=== PATIENT | female | born 1960 | race Caucasian/White ===

== ENCOUNTER 2019-11-27 10:55 | Emergency (ER) | payer OTHER ==
[~2019-11-27] VITALS: Ht 162.6 cm; Wt 49.9 kg
[~2019-11-27 10:55] MED LIST: ALPR.5 PO; Anastrozole1 GM MC; MECL12.5 PO; OXYC10TA19; TIROSINT100 MCG PO; TIROSINT50 MCG PO; Ultram50 MG PO
[2019-11-27 11:30] LABS: Source, Urine Clean Catch
[2019-11-27 11:41] LABS: BASOPHILS ABSOLUTE AUTO 0.05 K/mm3 (0.00-0.23); BASOPHILS PERCENT AUTO 1 % (0-2); EOSINOPHILS ABSOLUTE AUTO 0.03 K/mm3 (0.00-0.68); EOSINOPHILS PERCENT AUTO 0 % (0-6); Hemoglobin 13.7 g/dL (11.5-16.0); IMMATURE GRAN ABSOLUTE AUTO 0.03 K/mm3 (0.00-0.10); IMMATURE GRAN PERCENT AUTO 0 % (0-1); LYMPHOCYTES ABSOLUTE AUTO 2.11 K/mm3 (0.84-5.20); LYMPHOCYTES PERCENT AUTO 20 % (21-46); MONOCYTES ABSOLUTE AUTO 0.84 K/mm3 (0.16-1.47); MONOCYTES PERCENT AUTO 8 % (4-13); Mean Corpuscular HGB 31.2 pg (26.0-34.0); Mean Corpuscular HGB Conc 33.4 g/dL (31.5-36.5); Mean Corpuscular Volume 93 fL (80-100); Mean Platelet Volume 11.2 fL (9.1-12.4); NEUTROPHILS ABSOLUTE AUTO 7.69 K/mm3 (1.96-9.15); NEUTROPHILS PERCENT AUTO 72 % (41-73); Platelet Count 274 K/mm3 (150-400); RDW Standard Deviation 45.1 fL (35.1-46.3); Red Blood Cell Count 4.39 M/mm3 (3.80-5.20); White Blood Cell Count 10.75 K/mm3 (4.00-11.30)
[2019-11-27 11:42] LABS: Bilirubin, Urine Neg (Neg); Blood, Urine 4+ (Neg); Glucose Qualitative, Urine Neg (Neg); Ketones, Urine Neg (Neg); Leukocyte Esterase, Urine Neg (Neg); Nitrite, Urine Neg (Neg); Protein, Urine Neg (Neg); Specific Gravity, Urine 1.015 (1.003-1.022); Urobilinogen, Urine NORM (Normal)
[2019-11-27 11:52] LABS: Appearance, Urine Clear (Clear); Color, Urine Yellow (P-Yellow); White Blood Cells, Urine 0-2 /hpf (0-5)
[2019-11-27 11:53] LABS: Bacteria Few /hpf; Squamous Epithelial Cells Few /hpf (Few)
[2019-11-27 12:32] LABS: Alanine Aminotransfer (ALT/SGP 21 U/L (12-78); Albumin, Blood 4.2 g/dL (3.4-5.0); Alk Phos 95 U/L (50-136); Anion Gap 10 mmol/L (6-16); Aspartate Aminotrans (AST/SGOT 17 U/L (12-37); Bilirubin, Total 0.3 mg/dL (0.1-1.0); Blood Urea Nitrogen 7 mg/dL (8-24); Bun/Creatinine Ratio 9.6 (12.0-20.0); CO2, Blood 23 mmol/L (21-32); Calcium, Blood 9.3 mg/dL (8.5-10.1); Chloride, Blood 104 mmol/L (98-108); Creatinine, Blood 0.73 mg/dL (0.40-1.00); Glomerular Filtration Rate >60 (60-); Glucose, Blood 109 mg/dL (70-99); Potassium, Blood 3.8 mmol/L (3.5-5.5); Sodium, Blood 137 mmol/L (136-145); Total Protein, Blood 8.2 g/dL (6.4-8.2)
== END 2019-11-27 13:15 | disposition home or self-care (01) ==
LOC: ER 10:55
PROVIDERS: Emergency Medicine
DX: R10.9 Unspecified abdominal pain (principal); R31.9 Hematuria, unspecified; G35 Multiple sclerosis; E03.9 Hypothyroidism, unspecified; Z88.7 Allergy status to serum and vaccine; Z88.8 Allergy status to other drugs, medicaments and biological substances; Z79.899 Other long term (current) drug therapy
CPT/HCPCS: 36415; 74176; 80053; 81001; 85025; 99284-25

== ENCOUNTER 2020-06-19 09:23 | Day surgery (SDC) | payer OTHER ==
[~2020-06-19] VITALS: Ht 160 cm; Wt 56.0 kg
[~2020-06-19 09:23] MED LIST changes: +LEVSOD112 PO; +MECL25 PO; +ONDA4 PO
--- NOTE | 2020-06-19 14:15 | NUR ---
PATIENT ARRIVED VIA BED FROM SIGNAL APPRENTICE, DENIES CHEST PAIN/PRESSURE. ENDORSES SLIGHT SORENESS IN LEFT ARM. PATIENT IS ALERT AND ORIENTED, NO SIGNS OF ACUTE DISTRESS. SURGICAL DRESSING APPLIED TO L. UPPER CHEST, NO DISCHARGE NOTED, WCTM.
[2020-06-19] MEDS ORDERED: MARIJUANA PO (14:32)
--- NOTE | 2020-06-19 15:27 | NUR ---
PATIENT REPORTED ALLERGIES TO EGGS AND MILK, STATED THAT "THEY BOTHER MY NOSE". STATES THAT SHE DOES NOT NEED HER DIET CHANGED TO ACCOMMODATE FOR THESE ALLERGIES. SHE REFUSED HER FLU SHOT D/T HER EGG ALLERGY.
--- NOTE | 2020-06-19 17:54 | NUR ---
NO ACUTE EVENTS THIS HALF OF SHIFT. PATIENT IS ALERT AND ORIENTED, ENDORSES FEELING SORE IN HER LEFT ARM. IS ABLE TO AMBULATE INDEPENDENTLY IN ROOM AFTER SBA SUPERVISION. NO DIZZINESS NOTED. NO DISCHARGE NOTED AT PACEMAKER SITE. VSS, NO SIGNS OF ACUTE DISTRESS. PLAN IS FOR INTERROGATION IN MORNING AND DISCHARGE TOMORROW.
--- NOTE | 2020-06-20 06:16 | NUR ---
SHIFT SUMMARY PT A&O X4. INDPENDENT IN RM. VSS. SPO2 > 92% ON RA. MONITOR SHOWS NSR, HR 70's-80's. LCW PACER INSERTION SITE SLIGHTLY SWOLLEN, OTHERWISE WNL. DRESSING IN TACT. L ARM IN SLING. PT REPORTING INITIAL 8/10 L CHEST/SHOULDER/ARM PAIN, MANAGING SUCCESSFULLY W/ PRN NORCO PER EMAR X3 THIS SHIFT W/ PT REPORT OF PAIN REDUCTION TO 4/10 THIS AM. PT ANTICIPATING DC HOME TODAY AFTER X-RAY & PACER INTERROGATION.
[2020-06-20] MEDS ORDERED: Norco 5-325 Ta1 EACH PO (09:47)
--- NOTE | 2020-06-20 12:50 | NUR ---
PATIENT PROVIDED DISCHARGE INFO REGARDING FOLLOW UP PLANS, NEW PACEMAKER SITE CARE, MOVEMENT RESTRICTIONS AND REASONS TO RETURN TO THE HOSPITAL. PATIENT VERBALIZED UNDERSTANDING, NO SIGNS OF ACUTE DISTRESS, NO NEW DISCHARGE NOTED AT PACEMAKER SITE.
== END 2020-06-20 13:00 | disposition home or self-care (01) ==
LOC: MHTC 09:23 → PCU 13:52 → ENPENDDIS 06-20 08:59 → MHTC 06-20 13:00
PROC: 02H63JZ Insertion of Pacemaker Lead into Right Atrium, Percutaneous Approach (ICD-10-PCS; principal; 2020-06-19)
PROC: 0JH606Z Insertion of Pacemaker, Dual Chamber into Chest Subcutaneous Tissue and Fascia, Open Approach (ICD-10-PCS; principal; 2020-06-19)
PROC: 02HK3JZ Insertion of Pacemaker Lead into Right Ventricle, Percutaneous Approach (ICD-10-PCS; principal; 2020-06-19)
DX: I44.1 Atrioventricular block, second degree (principal); I44.7 Left bundle-branch block, unspecified; I10 Essential (primary) hypertension; E78.5 Hyperlipidemia, unspecified; E03.9 Hypothyroidism, unspecified; G35 Multiple sclerosis; G43.909 Migraine, unspecified, not intractable, without status migrainosus; J45.909 Unspecified asthma, uncomplicated; K21.9 Gastro-esophageal reflux disease without esophagitis; H54.40 Blindness, one eye, unspecified eye; Z88.8 Allergy status to other drugs, medicaments and biological substances; Z88.7 Allergy status to serum and vaccine; Z91.011 Allergy to milk products; Z91.012 Allergy to eggs; Z79.899 Other long term (current) drug therapy; Z23 Encounter for immunization
CPT/HCPCS: 33208; 71045; 71046; 76937; 99152; 99153; A9270; A9270-GY; C1785; C1894; C1898; J0690; J1644; J2250; J2405; J3010; J7030; J7040; J7050

== ENCOUNTER → 2024-01-22 | Outpatient (CLI) | payer OTHER ==
[~2024-01-22] MED LIST changes: +MARIJUANA PO; +Norco 5-325 Ta1 EACH PO
[2024-01-22 14:21] LABS: Bun/Creatinine Ratio 16.3 (12.0-20.0); Calcium, Blood 8.5 mg/dL (8.5-10.1); Creatinine, Blood 0.92 mg/dL (0.40-1.00); Free Thyroxine 1.2 ng/dL (0.70-1.60); Potassium, Blood 4.5 mmol/L (3.5-5.5); Thyroid Stimulating Hormone 3.26 uIU/mL (0.360-4.800)
== END | disposition home or self-care (01) ==
LOC: LAB 09:47 → LAB SHORT 09:47
PROVIDERS: Physician Assistant
DX: E03.9 Hypothyroidism, unspecified (principal); E87.6 Hypokalemia
CPT/HCPCS: 80048; 84439; 84443

== ENCOUNTER → 2024-02-02 | Outpatient (CLI) | payer OTHER ==
[2024-02-02 15:10] LABS: Bun/Creatinine Ratio 14.3 (12.0-20.0); Calcium, Blood 8.6 mg/dL (8.5-10.1); Creatinine, Blood 0.91 mg/dL (0.40-1.00); Potassium, Blood 4.2 mmol/L (3.5-5.5)
== END ==
LOC: LAB 12:18 → LAB SHORT 12:18
PROVIDERS: Physician Assistant
DX: E87.6 Hypokalemia (principal)
CPT/HCPCS: 80048

== ENCOUNTER → 2024-03-14 | Outpatient (CLI) | payer OTHER ==
[2024-03-14 16:33] LABS: Bun/Creatinine Ratio 13.7 (12.0-20.0); Calcium, Blood 8.7 mg/dL (8.5-10.1); Creatinine, Blood 0.88 mg/dL (0.40-1.00); Potassium, Blood 4.4 mmol/L (3.5-5.5)
== END ==
LOC: LAB SHORT 15:12 → LAB 15:12
PROVIDERS: Physician Assistant
DX: E87.6 Hypokalemia (principal)
CPT/HCPCS: 80048

== ENCOUNTER → 2024-05-15 | Outpatient (CLI) | payer OTHER ==
[2024-05-15 16:41] LABS: Alanine Aminotransfer (ALT/SGP 23 U/L (12-78); Albumin, Blood 4.1 g/dL (3.4-5.0); Albumin/Globulin Ratio 1.2 (0.8-1.8); Alk Phos 58 U/L (50-136); Anion Gap 8 mmol/L (3-11); Aspartate Aminotrans (AST/SGOT 15 U/L (12-37); Bilirubin, Total 0.5 mg/dL (0.1-1.0); Blood Urea Nitrogen 15 mg/dL (8-24); Bun/Creatinine Ratio 15.9 (12.0-20.0); CHOL/HDL RATIO 3.8; CO2, Blood 27 mmol/L (21-32); Chloride, Blood 103 mmol/L (98-108); Cholesterol 169 mg/dL (50-200); Creatinine, Blood 0.94 mg/dL (0.40-1.00); Globulin, Blood 3.3 g/dL (2.2-4.0); Glomerular Filtration Rate 68 (60-); Glucose, Blood 113 mg/dL (70-99); HDL Cholesterol 44 mg/dL (>39); LDL/HDL RATIO 2.3; Low Density Lipoprotein Chol 103 mg/dL (0-110); Potassium, Blood 4.1 mmol/L (3.5-5.5); Sodium, Blood 134 mmol/L (136-145); Total Protein, Blood 7.4 g/dL (6.4-8.2); Triglycerides 110 mg/dL (30-160); Very Low Density Lipoprot Chol 22 mg/dL (6-32)
== END | disposition home or self-care (01) ==
LOC: LAB SHORT 15:22 → LAB 15:22
PROVIDERS: Physician Assistant
DX: Z51.81 Encounter for therapeutic drug level monitoring (principal); Z79.899 Other long term (current) drug therapy
CPT/HCPCS: 80053; 80061

== ENCOUNTER → 2024-09-12 | Outpatient (CLI) | payer OTHER ==
[2024-09-12 16:13] LABS: BASOPHILS ABSOLUTE AUTO 0.05 K/mm3 (0.00-0.23); BASOPHILS PERCENT AUTO 1 % (0-2); EOSINOPHILS ABSOLUTE AUTO 0.04 K/mm3 (0.00-0.68); EOSINOPHILS PERCENT AUTO 1 % (0-6); Hemoglobin 11.5 g/dL (11.5-16.0); IMMATURE GRAN ABSOLUTE AUTO 0.01 K/mm3 (0.00-0.10); IMMATURE GRAN PERCENT AUTO 0 % (0-1); LYMPHOCYTES ABSOLUTE AUTO 1.82 K/mm3 (0.84-5.20); LYMPHOCYTES PERCENT AUTO 36 % (21-46); MONOCYTES ABSOLUTE AUTO 0.54 K/mm3 (0.16-1.47); MONOCYTES PERCENT AUTO 11 % (4-13); Mean Corpuscular HGB 29.7 pg (26.0-34.0); Mean Corpuscular HGB Conc 32.9 g/dL (31.5-36.5); Mean Corpuscular Volume 90 fL (80-100); Mean Platelet Volume 11.1 fL (9.1-12.4); NEUTROPHILS ABSOLUTE AUTO 2.66 K/mm3 (1.96-9.15); NEUTROPHILS PERCENT AUTO 52 % (41-73); Platelet Count 265 K/mm3 (150-400); RDW Coefficient Variation 13.8 % (11.7-14.2); RDW Standard Deviation 45.9 fL (35.1-46.3); Red Blood Cell Count 3.87 M/mm3 (3.80-5.20); White Blood Cell Count 5.12 K/mm3 (4.00-11.30)
[2024-09-12 19:58] LABS: Very Low Density Lipoprot Chol 23 mg/dL (6-32)
[2024-09-12 20:13] LABS: LDL/HDL RATIO 2.4
[2024-09-12 20:14] LABS: Alanine Aminotransfer (ALT/SGP 23 U/L (12-78); Albumin, Blood 4.2 g/dL (3.4-5.0); Albumin/Globulin Ratio 1.4 (0.8-1.8); Alk Phos 56 U/L (50-136); Anion Gap 14 mmol/L (3-11); Aspartate Aminotrans (AST/SGOT 16 U/L (12-37); Bilirubin, Total 0.4 mg/dL (0.1-1.0); Blood Urea Nitrogen 20 mg/dL (8-24); CO2, Blood 26 mmol/L (21-32); Calcium, Blood 9.4 mg/dL (8.5-10.1); Chloride, Blood 102 mmol/L (98-108); Cholesterol 182 mg/dL (50-200); Creatinine, Blood 0.83 mg/dL (0.40-1.00); Globulin, Blood 3.1 g/dL (2.2-4.0); Glomerular Filtration Rate 78 (60-); Glucose, Blood 90 mg/dL (70-99); HDL Cholesterol 46 mg/dL (>39); Low Density Lipoprotein Chol 113 mg/dL (0-110); Potassium, Blood 4.3 mmol/L (3.5-5.5); Sodium, Blood 138 mmol/L (136-145); Total Protein, Blood 7.3 g/dL (6.4-8.2); Triglycerides 117 mg/dL (30-160)
== END ==
LOC: LAB 15:00 → LAB SHORT 15:00
PROVIDERS: Physician Assistant
DX: Z79.899 Other long term (current) drug therapy (principal)
CPT/HCPCS: 80053; 80061; 82306; 83036; 84443; 85025

== ENCOUNTER 2024-12-17 07:04 | Inpatient (IN) | payer OTHER ==
[~2024-12-17] VITALS: Ht 160 cm; Wt 50.2 kg
[2024-12-17] MEDS ORDERED: NS 1,000 ML IV SCH (07:25)
[2024-12-17] MEDS ORDERED: Morphine Sulfate 4 MG/1 ML Injection IV ONE (07:25)
[2024-12-17] MEDS ORDERED: Ondansetron HCl 2 MG / ML 2ML Vial IV ONE (07:25)
[2024-12-17 08:11] LABS: BASOPHILS ABSOLUTE AUTO 0.01 K/mm3 (0.00-0.23); BASOPHILS PERCENT AUTO 0 % (0-2); EOSINOPHILS PERCENT AUTO 0 % (0-6); Hematocrit 38.6 % (33.0-51.0); Hemoglobin 12.7 g/dL (11.5-16.0); IMMATURE GRAN ABSOLUTE AUTO 0.02 K/mm3 (0.00-0.10); IMMATURE GRAN PERCENT AUTO 0 % (0-1); LYMPHOCYTES ABSOLUTE AUTO 0.25 K/mm3 (0.84-5.20); LYMPHOCYTES PERCENT AUTO 3 % (21-46); MONOCYTES PERCENT AUTO 5 % (4-13); Mean Corpuscular HGB 29.9 pg (26.0-34.0); Mean Corpuscular HGB Conc 32.9 g/dL (31.5-36.5); Mean Corpuscular Volume 91 fL (80-100); Mean Platelet Volume 10.7 fL (9.1-12.4); NEUTROPHILS ABSOLUTE AUTO 7.05 K/mm3 (1.96-9.15); NEUTROPHILS PERCENT AUTO 91 % (41-73); Platelet Count 231 K/mm3 (150-400); RDW Coefficient Variation 13.8 % (11.7-14.2); RDW Standard Deviation 46.4 fL (35.1-46.3); Red Blood Cell Count 4.25 M/mm3 (3.80-5.20); White Blood Cell Count 7.73 K/mm3 (4.00-11.30)
[2024-12-17 08:40] LABS: Albumin, Blood 3.6 g/dL (3.4-5.0); Albumin/Globulin Ratio 1.2 (0.8-1.8); Bilirubin, Total 0.4 mg/dL (0.1-1.0); Calcium, Blood 8.1 mg/dL (8.5-10.1); Creatinine, Blood 0.93 mg/dL (0.40-1.00); Globulin, Blood 3.1 g/dL (2.2-4.0); Magnesium, Blood 1.9 mg/dL (1.6-2.4); Potassium, Blood 3.2 mmol/L (3.5-5.5); Total Protein, Blood 6.7 g/dL (6.4-8.2)
[2024-12-17] MEDS ORDERED: Lactated Ringer's 1,000 ML IV ONE (09:45)
[2024-12-17] MEDS ORDERED: Prochlorperazine Edisylate 10 mg Vial IV ONE (10:15)
[2024-12-17] MEDS ORDERED: Lactated Ringer's 1,000 ML IV SCH (13:35)
[2024-12-17] MEDS ORDERED: Potassium Chloride 40 MEQ in NS 250 ML IV STA (13:38)
[2024-12-17] MEDS ORDERED: Ondansetron HCl 2 MG / ML 2ML Vial IV PRN (13:40)
[2024-12-17] MEDS ORDERED: D5W-LR 1,000 ML IV SCH (13:50)
[2024-12-17] MEDS ORDERED: Diazepam 5 MG / ML 2ML SYR IV PRN (13:55)
[2024-12-17] MEDS ORDERED: Metoclopramide HCl 5MG / ML 2ML Vial IV PRN (13:55)
[2024-12-17] MEDS ORDERED: Scopolamine Hydrobromide Patch TOP SCH (14:00)
[2024-12-17 16:35] VITALS: BP 115/77
--- NOTE | 2024-12-17 18:20 | NUR ---
PT ADMITTED TO ROOM 303 FROM ED, AMBULATED SBA FROM GOURNEY TO BED SBA, STEADY ON FEET BUT FEELING A LITTLE WEAK. HAS IV KCL INFUSING TO LAC, CALLED PHARMACY TO SEND D5LR TO START AT 150ML/HR X3L. PT STATES NAUSEA CONTROLLED CURRENTLY. ORIENTED TO ROOM AND CALL LIGHT. ENFORSED PT CALL STAFF FOR ACTIVITY FOR NOW SINCE SHE IS WEAK. PT KNOWS PHYSICAL LIMITS.
--- NOTE | 2024-12-17 18:50 | NUR ---
SUMMARY- PT A/O X3, WITHDRAWN AND IRRITABLE. IMPULSIVE AND GETS UP WITH ASSIST USE THE URINAL, PT HAS ADQ STRENGTH, SET OFF BED ALARM FREQ. PT VOIDS SMALL FREQ AMOUNT, STARTED ON FLOMAX TODAY. THIS RN DID NOT NOTICE ANY DIFFERENCE IN URINATION AFTER THIS DOSE. PT DECLILNED PLEURX PLACEMENT WITH DR ALMAARZ EARLIER TODAY, BUT STATES HE HAS DECIDED HE WOULD LIKE TO HAVE THE PLEURX DRAIN PLACED TOMORROW IF POSSIBEL. PT DID AGREE FOR THORA TODAY AND 2L REMOVED. PT STATES HE FEELS HE IS BREATHING BETTER, APPEARS BRIGHTER AND MORE INTERACTIVE. IN TO VISIT FOR A FEW HOURS TODAY. PLAN LIKELY FOR SNF PT'S NEEDS TOO GREAT FOR TO CARE FOR AT HOME. REPORTED OFF TO NOC KOKO ZIMMERMAN
[2024-12-17 19:16] VITALS: BP 121/87
[2024-12-17] MEDS ORDERED: Famotidine 20 MG Tab PO SCH (21:00)
[2024-12-18] VITALS (8 sets, daily range): BP systolic 98–131; BP diastolic 71–98
--- NOTE | 2024-12-18 04:23 | NUR ---
SHIFT SUMMARY 64 YR F ADMITTED ON 12/17/24. FULL CODE. PT WAS HAVING N/V AFTER BEING GIVEN ANTIEMETIC. SHE STATED THE VOMITING WAS CAUSING BACK PAIN. MEDICATED W/ VALIUM PER EMAR AND PT STOPPED N/V AND WAS ABLE TO SLEEP FOR A FEW HOURS W/O INTERUPTION. SHE IS INDEPENDANT IN THE ROOM AND PLEASANT AND COOPERATIVE WITH CARE. CURRENTLY ON SECOND OF THREE BAGS OF D5LR. STOOL SAMPLE NEEDS TO BE COLLECTED BUT NO BM THIS SHIFT.
[2024-12-18 05:30] LABS: BASOPHILS ABSOLUTE AUTO 0.01 K/mm3 (0.00-0.23); BASOPHILS PERCENT AUTO 0 % (0-2); EOSINOPHILS PERCENT AUTO 0 % (0-6); Hemoglobin 11.1 g/dL (11.5-16.0); IMMATURE GRAN ABSOLUTE AUTO 0.02 K/mm3 (0.00-0.10); IMMATURE GRAN PERCENT AUTO 0 % (0-1); LYMPHOCYTES ABSOLUTE AUTO 0.69 K/mm3 (0.84-5.20); LYMPHOCYTES PERCENT AUTO 9 % (21-46); MONOCYTES ABSOLUTE AUTO 0.68 K/mm3 (0.16-1.47); MONOCYTES PERCENT AUTO 9 % (4-13); Mean Corpuscular HGB 30.4 pg (26.0-34.0); Mean Corpuscular HGB Conc 34.7 g/dL (31.5-36.5); Mean Corpuscular Volume 88 fL (80-100); Mean Platelet Volume 11.7 fL (9.1-12.4); NEUTROPHILS PERCENT AUTO 82 % (41-73); Platelet Count 149 K/mm3 (150-400); RDW Standard Deviation 44.8 fL (35.1-46.3); Red Blood Cell Count 3.65 M/mm3 (3.80-5.20)
[2024-12-18] MEDS ORDERED: Levothyroxine Sodium 0.112 MG Tab PO SCH (06:00)
[2024-12-18 06:26] LABS: Albumin, Blood 2.8 g/dL (3.4-5.0); Albumin/Globulin Ratio 1.1 (0.8-1.8); Bilirubin, Total 0.2 mg/dL (0.1-1.0); Calcium, Blood 7.7 mg/dL (8.5-10.1); Creatinine, Blood 0.75 mg/dL (0.40-1.00); Globulin, Blood 2.6 g/dL (2.2-4.0); Potassium, Blood 3.4 mmol/L (3.5-5.5); Total Protein, Blood 5.4 g/dL (6.4-8.2)
[2024-12-18] MEDS ORDERED: Potassium Chloride 40 MEQ in NS 250 ML IV STA (08:06)
[2024-12-18] MEDS ORDERED: Enoxaparin 40 MG/0.4 ML SYR SC SCH (09:00)
[2024-12-18] MEDS ORDERED: Hydrocortisone Sod Succinate 100 MG Vial IV SCH (09:00)
[2024-12-18] MEDS ORDERED: Furosemide 10 MG/ML 4ML Vial IV SCH (14:00)
[2024-12-18] MEDS ORDERED: Diltiazem HCl 5 MG / ML 5ML Vial IV ONE (14:00)
--- NOTE | 2024-12-18 14:48 | NUR ---
Shift summary/transfer Patient during am had complaints of shortness of breath, elevated HR noted during morning vitals. Patient continues to be on Telemetry. MD notified during morning hours about increased shortness of breath. Orders obtained, CT scan done and patient tolerated well, shortly after returning to room patient stated shortness of breath was worse. IV stopped and MD notified. Medications administered per new orders and patient transferred to PCU for further care.
[2024-12-18 14:52] LABS: Source, Urine Clean Catch
[2024-12-18] MEDS ORDERED: dilTIAZem HCL 125 MG in Dextrose 5% 100 ML IV SCH (15:00)
[2024-12-18] MEDS ORDERED: CefTRIAXone Sodium 1,000 MG in NS 100 ML IV SCH (15:00)
[2024-12-18 15:26] LABS: Appearance, Urine Clear (Clear); Bilirubin, Urine Neg (Neg); Blood, Urine 1+ (Neg); Color, Urine Yellow (P-Yellow); Glucose Qualitative, Urine 1+ (Neg); Ketones, Urine Neg (Neg); Leukocyte Esterase, Urine 1+ (Neg); Nitrite, Urine Neg (Neg); Protein, Urine 2+ (Neg); Specific Gravity, Urine 1.015 (1.003-1.022); Urobilinogen, Urine NORM (Normal)
[2024-12-18 15:35] LABS: Bacteria Few /hpf; Squamous Epithelial Cells Rare /hpf (Few); White Blood Cells, Urine 25-50 /hpf (0-5)
[2024-12-18 16:55] LABS: Adenovirus Not Detected (NOT DETECT); Bordetella pertussis Not Detected (NOT DETECT); Chlamydophila pneumoniae Not Detected (NOT DETECT); Coronavirus 229E Not Detected (NOT DETECT); Coronavirus HKU1 Not Detected (NOT DETECT); Coronavirus NL63 Not Detected (NOT DETECT); Coronavirus OC43 Not Detected (NOT DETECT); Human Metapneumovirus Not Detected (NOT DETECT); Human Rhinovirus/Enterovirus Not Detected (NOT DETECT); Influenza A/2009-H1 Not Detected (NOT DETECT); Influenza A/H1 Not Detected (NOT DETECT); Influenza A/H3 Not Detected (NOT DETECT); Influenza B Not Detected (NOT DETECT); Mycoplasma pneumoniae Not Detected (NOT DETECT); Parainfluenza Virus 1 Not Detected (NOT DETECT); Parainfluenza Virus 2 Not Detected (NOT DETECT); Parainfluenza Virus 3 Not Detected (NOT DETECT); Parainfluenza Virus 4 Not Detected (NOT DETECT); Respiratory Syncytial Virus Not Detected (NOT DETECT); SARS-Cov-2 (COVID-19), BioFire Not Detected (NOT DETECT)
--- NOTE | 2024-12-18 18:38 | NUR ---
PT ARRIVED TO UNIT @ 1436 FROM RM 303. SHE IS A&Ox4 AND ABLE TO MAKE NEEDS KNOWN. SHE IS ON OXY MASK @13L AND HER O2 SATS ARE IN THE 90'S. SHE IS INDEPENDENT TO AND FROM THE BSC. SHE IS ON A DILTIAZEM GTT PER EMAR. NO NEEDS OR CONCERNS NOTED @ THIS TIME. BED IN LOW POSITION, CALL LIGHT AND PERSONAL BELONGINGS IN REACH.
[2024-12-19 03:59] VITALS: BP 99/72
[2024-12-19 04:45] LABS: BASOPHILS ABSOLUTE AUTO 0.02 K/mm3 (0.00-0.23); BASOPHILS PERCENT AUTO 0 % (0-2); EOSINOPHILS PERCENT AUTO 0 % (0-6); Hematocrit 32.8 % (33.0-51.0); IMMATURE GRAN ABSOLUTE AUTO 0.03 K/mm3 (0.00-0.10); IMMATURE GRAN PERCENT AUTO 0 % (0-1); LYMPHOCYTES ABSOLUTE AUTO 1.13 K/mm3 (0.84-5.20); LYMPHOCYTES PERCENT AUTO 11 % (21-46); MONOCYTES ABSOLUTE AUTO 0.88 K/mm3 (0.16-1.47); MONOCYTES PERCENT AUTO 9 % (4-13); Mean Corpuscular HGB 29.6 pg (26.0-34.0); Mean Corpuscular HGB Conc 33.5 g/dL (31.5-36.5); Mean Corpuscular Volume 88 fL (80-100); NEUTROPHILS ABSOLUTE AUTO 8.31 K/mm3 (1.96-9.15); NEUTROPHILS PERCENT AUTO 80 % (41-73); Platelet Count 139 K/mm3 (150-400); RDW Coefficient Variation 13.8 % (11.7-14.2); RDW Standard Deviation 44.6 fL (35.1-46.3); Red Blood Cell Count 3.72 M/mm3 (3.80-5.20); White Blood Cell Count 10.37 K/mm3 (4.00-11.30)
--- NOTE | 2024-12-19 05:19 | NUR ---
SHIFT SUMMARY PT A&O X4, ABLE TO MAKE NEEDS KNOWN. VSS, AFEBRILE, SPO2 >90% ON 13-15L OXIMASK. PT REPORTS STARTING TO FEEL BETTER AND STATES THAT IT "FEELS EASIER TO TAKE A BREATH". SHE HAS A COUGH, SPUTUM CULTURE PENDING SAMPLE COLLECTION. CARDIZEM GTT INFUSING PER EMAR, HR STABLE WITH RATE OF 90S-110S. PT DENIES CP OR PRESSURE. NAUSEA MEDICATED PER EMAR. PT IS SBA TO THE RESTROOM FOR LINE MANAGEMENT. BED IS IN LOWEST POSITION, CALL LIGHT IN REACH, BREATHING IS EVEN AND UNLABORED.
[2024-12-19 06:02] LABS: Albumin, Blood 2.8 g/dL (3.4-5.0); Bilirubin, Total 0.4 mg/dL (0.1-1.0); Bun/Creatinine Ratio 21.9 (12.0-20.0); Calcium, Blood 7.8 mg/dL (8.5-10.1); Creatinine, Blood 0.73 mg/dL (0.40-1.00); Globulin, Blood 2.7 g/dL (2.2-4.0); Potassium, Blood 3.1 mmol/L (3.5-5.5); Total Protein, Blood 5.5 g/dL (6.4-8.2)
[2024-12-19] MEDS ORDERED: Potassium Chloride 20 MEQ TabCR PO SCH (06:15)
[2024-12-19 07:27] VITALS: BP 103/68
[2024-12-19] MEDS ORDERED: Midodrine 5 MG Tab PO PRN (07:40)
[2024-12-19] MEDS ORDERED: Metoprolol Tartrate 25 MG Tab PO SCH (08:00)
[2024-12-19] MEDS ORDERED: Azithromycin 250 MG in NS 250 ML IV SCH (09:00)
[2024-12-19] MEDS ORDERED: Furosemide 10 MG / ML 2ML Vial IV SCH (09:00)
[2024-12-19 11:09] VITALS: BP 116/78
--- NOTE | 2024-12-19 14:59 | NUR ---
PT CALLED TO SAY THAT SHE WAS HAVING 8/10 PAIN TO LUQ THAT RADIATED AROUND TO THE BACK THAT WAS SHARP AND CONSTANT. CALLED DR. ORLANDO TO NOTIFY AND SHE WILL PUT ORDERS IN.
[2024-12-19] MEDS ORDERED: TraMADol HCl 50 MG Tab PO PRN (15:05)
[2024-12-19 15:16] VITALS: BP 92/80
[2024-12-19] MEDS ORDERED: Lidocaine 4% 1 Patch TOP SCH (18:15)
--- NOTE | 2024-12-19 18:39 | NUR ---
PT IS A&Ox4 AND ABLE TO MAKE NEEDS KNOWN. SHE IS ON 5LNC W/O2 SATS ABOVE 90%. SHE IS A SBA TO AND FROM THE RESTROOM. SHE IS STILL HAVING NAUSEA THROUGHOUT THE DAY, BUT SHE IS TRYING TO EAT SMALL AMOUNTS OF LIQUID. NO NEEDS OR CONCERNS NOTED @ THIS TIME. BED IN LOW POSITION, CALL LIGHT AND PERSONAL BELONGINGS IN REACH.
[2024-12-19 18:41] VITALS: BP 147/92
[2024-12-19 21:32] VITALS: BP 118/64
[2024-12-20] VITALS: BP 98/69
[2024-12-20 04:11] LABS: BASOPHILS ABSOLUTE AUTO 0.02 K/mm3 (0.00-0.23); BASOPHILS PERCENT AUTO 0 % (0-2); EOSINOPHILS PERCENT AUTO 0 % (0-6); Hematocrit 36.3 % (33.0-51.0); Hemoglobin 12.3 g/dL (11.5-16.0); IMMATURE GRAN ABSOLUTE AUTO 0.04 K/mm3 (0.00-0.10); IMMATURE GRAN PERCENT AUTO 0 % (0-1); LYMPHOCYTES ABSOLUTE AUTO 1.52 K/mm3 (0.84-5.20); LYMPHOCYTES PERCENT AUTO 12 % (21-46); MONOCYTES PERCENT AUTO 5 % (4-13); Mean Corpuscular HGB 30.4 pg (26.0-34.0); Mean Corpuscular HGB Conc 33.9 g/dL (31.5-36.5); Mean Corpuscular Volume 90 fL (80-100); NEUTROPHILS ABSOLUTE AUTO 10.69 K/mm3 (1.96-9.15); NEUTROPHILS PERCENT AUTO 82 % (41-73); NRBC ABSOLUTE 0.02 K/mm3 (0.00-0.02); NRBC Auto 0.2 /100 WBC (0.0-0.2); Platelet Count 198 K/mm3 (150-400); RDW Coefficient Variation 13.7 % (11.7-14.2); RDW Standard Deviation 45.1 fL (35.1-46.3); Red Blood Cell Count 4.05 M/mm3 (3.80-5.20); White Blood Cell Count 12.97 K/mm3 (4.00-11.30)
[2024-12-20 04:42] LABS: Bun/Creatinine Ratio 26.4 (12.0-20.0); Calcium, Blood 7.6 mg/dL (8.5-10.1); Creatinine, Blood 0.76 mg/dL (0.40-1.00); Magnesium, Blood 2.4 mg/dL (1.6-2.4); Potassium, Blood 4.3 mmol/L (3.5-5.5)
--- NOTE | 2024-12-20 06:18 | NUR ---
PT HAD AN UNEVENTFUL NIGHT, ABLE TO MAKE HER NEEDS KNOWN, PT IS ALERT, SR-ST, 2L NC, LUNGS DIM BUT CLEAR, PT C/O PAIN TO RIGH [place]ANK RIB AREA, PRN GIVEN, PT CO NAUSEA, PRN GIVEN EFFECTIVE, CALL LIGHT WITHIN REACH PERSONAL ITEMS AT BEDSIDE.
[2024-12-20] MEDS ORDERED: CALCIUM GLUC IN NACL, ISO-OSM 50 ML IV ONE (07:50)
[2024-12-20 08:26] VITALS: BP 117/84
[2024-12-20] MEDS ORDERED: Lidocaine 4% 1 Patch TOP SCH (09:00)
[2024-12-20] MEDS ORDERED: Metoprolol Tartrate 25 MG Tab PO SCH ×3 (09:00→21:00)
[2024-12-20] MEDS ORDERED: Hydrocortisone Sod Succinate 100 MG Vial IV SCH ×2 (09:00)
[2024-12-20] MEDS ORDERED: Doxycycline Hyclate 100 MG TAB PO SCH (09:00)
[2024-12-20] MEDS ORDERED: Metoprolol Tartrate 25 MG Tab PO ONE (09:55)
[2024-12-20 12:08] VITALS: BP 124/81
[2024-12-20 15:51] VITALS: BP 135/93
[2024-12-20 17:54] VITALS: BP 140/105
--- NOTE | 2024-12-20 18:00 | NUR ---
SHIFT SUMMARY PATIENT AOX4 ABLE TO MAKE NEEDS KNOWN. SHE DENIES CHEST PAIN OR SOB. SHE IS TOLERATING HER FULL LIQUIDS AND IS UP VOIDING IN THE RESTROOM. SHE IS ON 1.5L OF O2 SATTING GREATER THAN 92% AND HER HEART RATE IS TACHY IN THE 1OO-110s.
[2024-12-20] MEDS ORDERED: Lidocaine 4% 1 Patch TOP ONE (18:10)
[2024-12-20 21:01] VITALS: BP 119/80
--- NOTE | 2024-12-21 00:49 | NUR ---
SHIFT SUMMARY- NO ACUTE CHANGES. PT RECIEVED MEDSURG TX ORDERS
[2024-12-21 04:17] VITALS: BP 130/86
[2024-12-21 04:17] LABS: BASOPHILS ABSOLUTE AUTO 0.02 K/mm3 (0.00-0.23); BASOPHILS PERCENT AUTO 0 % (0-2); EOSINOPHILS PERCENT AUTO 0 % (0-6); Hematocrit 34.5 % (33.0-51.0); Hemoglobin 11.7 g/dL (11.5-16.0); IMMATURE GRAN ABSOLUTE AUTO 0.05 K/mm3 (0.00-0.10); IMMATURE GRAN PERCENT AUTO 1 % (0-1); LYMPHOCYTES ABSOLUTE AUTO 1.84 K/mm3 (0.84-5.20); LYMPHOCYTES PERCENT AUTO 19 % (21-46); MONOCYTES ABSOLUTE AUTO 0.71 K/mm3 (0.16-1.47); MONOCYTES PERCENT AUTO 7 % (4-13); Mean Corpuscular HGB 29.7 pg (26.0-34.0); Mean Corpuscular HGB Conc 33.9 g/dL (31.5-36.5); Mean Corpuscular Volume 88 fL (80-100); Mean Platelet Volume 11.6 fL (9.1-12.4); NEUTROPHILS ABSOLUTE AUTO 6.96 K/mm3 (1.96-9.15); NEUTROPHILS PERCENT AUTO 73 % (41-73); NRBC ABSOLUTE 0.05 K/mm3 (0.00-0.02); NRBC Auto 0.5 /100 WBC (0.0-0.2); Platelet Count 223 K/mm3 (150-400); RDW Coefficient Variation 13.7 % (11.7-14.2); RDW Standard Deviation 43.9 fL (35.1-46.3); Red Blood Cell Count 3.94 M/mm3 (3.80-5.20); White Blood Cell Count 9.58 K/mm3 (4.00-11.30)
[2024-12-21 04:36] LABS: Bun/Creatinine Ratio 21.9 (12.0-20.0); Calcium, Blood 8.1 mg/dL (8.5-10.1); Creatinine, Blood 0.73 mg/dL (0.40-1.00); Potassium, Blood 3.5 mmol/L (3.5-5.5)
[2024-12-21 08:34] VITALS: BP 129/101
[2024-12-21 12:25] VITALS: BP 95/56
[2024-12-21] MEDS ORDERED: DOXY100 PO (12:35)
[2024-12-21] MEDS ORDERED: METO25ER PO (12:36)
--- NOTE | 2024-12-21 12:51 | NUR ---
DISCHARGE PT PROVIDED DISCHARGE INSTRUCTIONS AND EDUCATED ON NEW MEDICATIONS. ALL QUESTIONS ANSWERED. PT TAKEN OUT VIA WC.
--- NOTE | 2024-12-21 13:02 | NUR ---
SHIFT SUMMARY PATIENT AOX4 ABLE TO MAKE NEEDS KNOWN. SHE DENIES CHEST PAIN OR SOB. HER VITALS ARE STABLE AND HER O2 SATS ARE GREATER THAN 95% ON ROOM AIR. HER HEART RATE IS SINUS RHYTHM WITH SOME TACHYCARDIA WITH ACTIVITY.
== END 2024-12-21 13:03 | disposition home or self-care (01) | DRG 871 ==
LOC: ER 07:04 → MEDS 07:05 → PCU 12-18 14:36
PROVIDERS: Emergency Medicine; ADMIT Internal Medicine
DX: A41.9 Sepsis, unspecified organism (principal); J96.91 Respiratory failure, unspecified with hypoxia; E87.20 Acidosis, unspecified; Z95.0 Presence of cardiac pacemaker; G43.909 Migraine, unspecified, not intractable, without status migrainosus; K52.9 Noninfective gastroenteritis and colitis, unspecified; E86.0 Dehydration; R65.20 Severe sepsis without septic shock; G35 Multiple sclerosis; E03.9 Hypothyroidism, unspecified; Z87.442 Personal history of urinary calculi; Z90.710 Acquired absence of both cervix and uterus; Z90.722 Acquired absence of ovaries, bilateral; Z98.890 Other specified postprocedural states; Z79.899 Other long term (current) drug therapy; Z79.890 Hormone replacement therapy; Z88.7 Allergy status to serum and vaccine; Z88.8 Allergy status to other drugs, medicaments and biological substances; Z91.012 Allergy to eggs; Z91.011 Allergy to milk products
CPT/HCPCS: 0202U; 36415; 71260; 76770; 80048; 80053; 81001; 82330; 83605; 83690; 83735; 84145; 84443; 85025; 85379; 87040; 87086; 93005; 93010; 94760; 94762; 96361; 96365; 96366; 96374; 96375; 96376; 99285-25; A9270; G0378; J0456; J0612; J0696; J0780; J1720; J1938; J2270; J2405; J2765; J3360; J3480; J7030; J7050; J7120; J7121; Q9967

== ENCOUNTER → 2025-04-01 | Outpatient (CLI) | payer OTHER ==
[~2025-04-01] MED LIST changes: +DOXY100 PO; +METO25ER PO
[2025-04-01 13:05] LABS: Anion Gap 9.0 mmol/L (3-11); Blood Urea Nitrogen 20.0 mg/dL (8-24); CO2, Blood 26.0 mmol/L (21-32); Calcium, Blood 8.4 mg/dL (8.5-10.1); Chloride, Blood 105.0 mmol/L (98-108); Creatinine, Blood 0.8 mg/dL (0.40-1.00); Glucose, Blood 84.0 mg/dL (70-99); Potassium, Blood 4.1 mmol/L (3.5-5.5); Sodium, Blood 136.0 mmol/L (136-145)
== END ==
LOC: LAB 10:44 → LAB SHORT 10:44
PROVIDERS: Physician Assistant
DX: E83.51 Hypocalcemia (principal)
CPT/HCPCS: 80048